=== PATIENT | male | born 1995 | race Asian ===

== ENCOUNTER 2017-03-02 08:09 | Emergency (ER) | payer MEDICAID, OTHER ==
[~2017-03-02] VITALS: Ht 182.9 cm; Wt 65.8 kg
[2017-03-02 08:10] VITALS: BP_SYST 100
[2017-03-02] MEDS ORDERED: NACL 0.9% 1,000 ML IV ONE (09:00)
[2017-03-02 10:57] VITALS: BP_SYST 122
== END 2017-03-02 10:57 | disposition home or self-care (01) ==
LOC: SED 08:09
DX: E86.0 Dehydration (principal); R55 Syncope and collapse; F12.10 Cannabis abuse, uncomplicated
CPT/HCPCS: 93005; 96360; 99284; J7030